=== PATIENT | female | born 1985 | race Caucasian/White ===

== ENCOUNTER 2019-07-05 19:26 | Emergency (ER) | payer BC, OTHER ==
--- NOTE | 2019-07-05 21:28 | Emergency Department Record ---
History of Present Illness - General Chief complaint: Pain Stated complaint: PA,RT LEG Time Seen by Provider: 07/05/19 20:06 Source: Patient Mode of Arrival: Ambulatory Limitations: No limitations - History of Present Illness Initial comments: pt has pain in her r knee for the last few days that is getting worse. she noticed ecchymosis today along the lateral aspect. she has no calf or thigh pain. she has difficulty straightening knee. pt also has a hx of knee giving out in the past MD Complaint: Extremity pain, Joint pain, Joint swelling Onset/Timin -: Days(s) Location: Right, Knee, Thigh History of Same: No Severity scale (1-10): 4 Quality: Dull Consistency: Constant Improves with: Cold therapy, Elevation, Medication Worsens with: Walking, Weight bearing Associated Symptoms: Denies other symptoms - Related Data Home Medications Medication Instructions Recorded Confirmed Last Taken Ibuprofen 800 mg PO Q8HR PRN 07/05/19 07/05/19 Unknown Omeprazole 20 mg PO DAILY 07/05/19 07/05/19 Unknown Allergies Allergy/AdvReac Type Severity Reaction Status Date / Time hydrocodone AdvReac ITCHING Verified 07/05/19 20:00 Travel Screening - Travel/Exposure Within Last 30 Days Have you traveled within the last 30 days?: No - Travel/Exposure Within Last Year Have you traveled outside the [place] in the last year?: No - Additonal Travel Details Have you been exposed to anyone with a communicable illness?: No - Travel Symptoms Symptom Screening: None Review of Systems Reviewed: No additional complaints except as noted below Constitutional: Reports: As per HPI. Denies: Chills, Fever, Malaise, Night sweats, Weakness, Weight change Eyes: Reports: As per HPI. Denies: Eye discharge, Eye pain, Photophobia, Vision change ENT: Reports: As per HPI. Denies: Congestion, Dental pain, Ear pain, Epistaxis, Hearing loss, Throat pain Respiratory: Reports: As per HPI. Denies: Cough, Dyspnea, Hemoptysis, Stridor, Wheezes Cardiovascular: Reports: As per HPI. Denies: Arrhythmia, Chest pain, Dyspnea on exertion, Edema, Murmurs, Orthopnea, Palpitations, Paroxysmal nocturnal dyspnea, Rheumatic Fever, Syncope Endocrine: Reports: As per HPI. Denies: Fatigue, Heat or cold intolerance, Polydipsia, Polyuria Gastrointestinal: Reports: As per HPI. Denies: Abdominal pain, Constipation, Diarrhea, Hematemesis, Hematochezia, Melena, Nausea, Vomiting Genitourinary: Reports: As per HPI. Denies: Abnormal menses, Discharge, Dyspareunia, Dysuria, Frequency, Hematuria, Incontinence, Retention, Urgency Musculoskeletal: Reports: As per HPI. Denies: Arthralgia, Back pain, Gout, Joint swelling, Myalgia, Neck pain Skin: Reports: As per HPI. Denies: Bruising, Change in color, Change in hair/nails, Lesions, Pruritus, Rash Neurological: Reports: As per HPI. Denies: Abnormal gait, Confusion, Headache, Numbness, Paresthesias, Seizure, Tingling, Tremors, Vertigo, Weakness Psychiatric: Reports: As per HPI. Denies: Anxiety, Auditory hallucinations, Depression, Homicidal thoughts, Suicidal thoughts, Visual hallucinations Hematological/Lymphatic: Reports: As per HPI. Denies: Anemia, Blood Clots, Easy bleeding, Easy bruising, Swollen glands Past Medical History - SOCIAL HISTORY Smoking Status: Current every day smoker Alcohol Use: Occasional Drug Use Detail:: Other - RESPIRATORY Hx Respiratory Disorders: No - CARDIOVASCULAR Hx Cardio Disorders: No - GI Hx GI Disorders: Yes Hx Ulcer: Yes - ENDOCRINE Hx Endocrine Disorders: Yes Hx Thyroid Disease: Yes - PSYCH Hx Anxiety: Yes Hx Depression: Yes Family Medical History Any Significant Family History?: Yes Hx HTN: Father, Grandparents Hx Stroke: Grandparents Physical Exam - General General Appearance: Alert, Oriented x3, Cooperative, Mild distress - Head Head exam: Normal inspection - Eye Eye exam: Normal appearance, PERRL, EOMI Pupils: Normal accommodation - ENT ENT exam: Normal exam, Mucous membranes moist, Normal external ear exam, Normal orophraynx Ear exam: Normal external inspection. negative: External canal tenderness Nasal Exam: Normal inspection. negative: Discharge, Sinus tenderness Mouth exam: Normal external inspection, Tongue normal Teeth exam: Normal inspection. negative: Dental caries Throat exam: Normal inspection. negative: Tonsillar erythema, Tonsillar exudate - Neck Neck exam: Normal inspection, Full ROM. negative: Tenderness - Respiratory Respiratory exam: Normal lung sounds bilaterally. negative: Respiratory distress - Cardiovascular Cardiovascular Exam: Regular rate, Normal rhythm, Normal heart sounds - GI/Abdominal GI/Abdominal exam: Soft, Normal bowel sounds. negative: Tenderness - Rectal Rectal exam: Deferred - exam: Deferred - Extremities Extremities exam: Joint swelling, Normal capillary refill, Tenderness. negative: Full ROM Image of Full Body: 1 - ecchymosis, swelling tenderness. unable to fully straighten the knee - Back Back exam: Reports: Normal inspection, Full ROM. Denies: Muscle spasm, Rash noted, Tenderness - Neurological Neurological exam: Alert, CN II-XII intact, Normal gait, Oriented X3 - Psychiatric Psychiatric exam: Normal affect, Normal mood - Skin Skin exam: Dry, Intact, Normal color, Warm Course Vital Signs 07/05/19 19:37 Temperature 98.6 F Pulse Rate [ 84 Pulse Ox Probe] Respiratory 20 Rate Blood Pressure 124/87 [Left Arm] Pulse Ox 100 Disposition Disposition: Discharge Clinical Impression: Ligament tear of lower extremity Meniscus, lateral, derangement Qualifiers: Laterality: right Qualified Code(s): M23.300 - Other meniscus derangements, unspecified lateral meniscus, right knee Disposition: Home, Self-Care Condition: (1) Good Instructions: Knee Sprain (ED), Knee Immobilizer (ED), Meniscus Tear (ED) Additional Instructions: follow up with dr reich. return sooner if worse. ice and elevate. motrin for pain Referrals: Vasile Reich [DOCTOR OF OSTEOPATH] - Forms: Patient Portal Access, Return to Work/School Quality - Quality Measures Quality Measures: N/A - Blood Pressure Screening Does Patient Have Any of the Following: No Blood Pressure Classification: Pre-Hypertensive BP Reading Systolic Measurement: 124 Diastolic Measurement: 87 Screening for High Blood Pressure: < Pre-Hypertensive BP, F/U Documented > [G8950] Pre-Hypertensive Follow-up Interventions: Follow-up with rescreen every year.
--- NOTE | 2019-07-06 19:23 | RADIOLOGY REPORT ---
EXAM: KNEE, RIGHT 4 VIEWS HISTORY: PAIN AND CONTUSION OF RIGHT KNEE, SWELLING AND BRUISING FOR ONE DAY. TECHNIQUE: Four views right knee. COMPARISON: None. ENCOUNTER: Initial. FINDINGS: The right knee appears intact with no definite fracture or dislocation seen. No definite joint effusion evident. No destructive lesion seen. IMPRESSION: THE RIGHT KNEE APPEARS NEGATIVE. JOB NUMBER: [id number] MTDD
== END 2019-07-05 21:47 | disposition home or self-care (01) ==
LOC: ER 19:26
DX: M23.300 Other meniscus derangements, unspecified lateral meniscus, right knee (principal); M25.661 Stiffness of right knee, not elsewhere classified; F17.210 Nicotine dependence, cigarettes, uncomplicated
CPT/HCPCS: 99283